=== PATIENT | male | born 1960 | race Caucasian/White ===

== ENCOUNTER 2018-01-11 12:20 | Emergency (ER) | payer MEDICAID ==
[~2018-01-11] VITALS: Ht 193 cm; Wt 96.0 kg
[~2018-01-11 12:20] MED LIST: ACULAR0.5 % OD; ASA LO-DOSE81 MG OR; ASPIRIN LOW DOS81 M1 PO; ATENOLOL25 MG PO; CRESTOR10 MG PO; IMDUR30 MG PO; LIPITOR20 MG PO; LISINOPRIL10 MG PO; LORTAB 7.5 OR; NAPROSYN500 MG OR; NEXIUM40 M1 OR; NITROLINGUAL SPRAY D MT; NITROSTAT0.4 MG SL; PLAVIX75 MG PO; PREVACID30 M2 PO; PROTONIX40 M2 PO; ROBITUSSIN AC10 ML PO; TAMSULOSIN0.4 MG PO; VYTORIN 10/401 TAB OR; ZESTRIL2.5 MG PO; [UNRECOGNIZED DRUG - REMARK]
[2018-01-11 13:11] LABS: HEMATOCRIT 38.3 % (39.0-50.0); HEMOGLOBIN 13.7 g/dl (14.0-18.0); IMMATURE GRANULOCYTES 0.4 % (0.0-5.0); MEAN CELL VOLUME 89.3 fL CALC (80.0-100.0); MEAN CORPUSCULAR HGB 31.9 pG CALC (26.0-32.0); MEAN CORPUSCULAR HGB CONC 35.8 g/L CALC (32.0-36.0); NEUT# 4.05 thou/uL (1.82-7.42); RED BLOOD COUNT 4.29 mill/uL (4.70-6.10); RED CELL DISTRI WIDTH 11.9 % (11.5-15.5)
[2018-01-11 13:19] LABS: ALKALINE PHOSPHATASE 77 u/l (38-126); BILIRUBIN, TOTAL 1.3 mg/dL (0.0-1.4); BUN 13 mg/dL (9-20); BUN/CREATININE RATIO 15 (12-20 (CALC)); CARBON DIOXIDE 27 mmol/l (22-30); CHLORIDE 95 mmol/l (95-108); CREATININE 0.9 mg/dL (0.7-1.3); GFR > 60 ML/MIN (>=60 (CALC)); GFR FOR AFR.AMER. > 60 ML/MIN (>=60 (CALC)); POTASSIUM 3.3 mmol/l (3.5-5.1)
[2018-01-11 13:21] LABS: ALBUMIN 4.5 g/dL (3.2-5.0); ANION GAP 14 (6-22 (CALC)); SGOT/AST 55 u/l (17-59); SODIUM 133 mmol/l (137-146); TOTAL PROTEIN 7.8 g/dL (6.3-8.2)
[2018-01-11 13:26] LABS: INFLUENZA A NONE DETECTED (NONE DETECT); INFLUENZA B NONE DETECTED (NONE DETECT)
[2018-01-11 13:31] LABS: MYOGLOBIN 122 ng/mL (0 - 121)
[2018-01-11 14:04] LABS: URINE BILIRUBIN - DIPSTICK NEGATIVE (NEGATIVE); URINE BLOOD DIPSTICK NEGATIVE (NEGATIVE); URINE COLOR YELLOW; URINE GLUCOSE - DIPSTICK NEGATIVE (NEGATIVE); URINE KETONE NEGATIVE (NEGATIVE); URINE LEUK ESTERASE NEGATIVE (Negative); URINE NITRITE - DIPSTICK NEGATIVE (Negative); URINE PH 5.5 (4.5-8.0); URINE PROTEIN - DIPSTICK NEGATIVE (NEG-TRACE); URINE SPECIFIC GRAVITY <=1.005; URINE UROBILINOGEN - DIPSTICK 0.2 E.U./dL (0.2)
[2018-01-11 14:06] LABS: URINE CLARITY CLEAR
[2018-01-11] MEDS ORDERED: REGLAN10 MG PO (14:58)
[2018-01-11] MEDS ORDERED: ANTIVERT PO (14:58)
[2018-01-11 15:03] VITALS: BP 137/69
== END 2018-01-11 15:05 | disposition home or self-care (01) ==
LOC: ED 12:20
PROVIDERS: Emergency Medicine
DX: R42 Dizziness and giddiness (principal); R00.0 Tachycardia, unspecified; R19.7 Diarrhea, unspecified; F17.210 Nicotine dependence, cigarettes, uncomplicated; I10 Essential (primary) hypertension; I25.2 Old myocardial infarction

== ENCOUNTER 2022-08-25 12:24 | Inpatient (IN) | payer MEDICAID ==
[~2022-08-25] VITALS: Ht 193 cm; Wt 98.0 kg
[2022-08-25] VITALS (16 sets, daily range): BP systolic 70–164; BP diastolic 48–75
[~2022-08-25 12:24] MED LIST changes: +ANTIVERT PO; +REGLAN10 MG PO
[2022-08-25 13:04] LABS: BASO% 0.5 % (0-3); EOS% 3.8 % (0-8); HEMATOCRIT 40.4 % (39.0-50.0); HEMOGLOBIN 13.1 g/dl (14.0-18.0); IMMATURE GRANULOCYTES 0.6 % (0.0-5.0); LYMPH% 26.7 % (15-41); MEAN CORPUSCULAR HGB 29.5 pG CALC (26.0-32.0); MEAN CORPUSCULAR HGB CONC 32.4 g/dL CAL (32.0-36.0); MONO% 8.2 % (2-13); NEUT# 3.96 thou/uL (1.82-7.42); NEUT% 60.2 % (42-76); RED BLOOD COUNT 4.44 mill/uL (4.70-6.10); RED CELL DISTRI WIDTH 13.2 % (11.5-15.5)
[2022-08-25 13:05] LABS: URINE BILIRUBIN - DIPSTICK NEGATIVE (NEGATIVE); URINE BLOOD DIPSTICK NEGATIVE (NEGATIVE); URINE COLOR YELLOW; URINE GLUCOSE - DIPSTICK NEGATIVE (NEGATIVE); URINE KETONE NEGATIVE (NEGATIVE); URINE LEUK ESTERASE NEGATIVE (NEGATIVE); URINE PROTEIN - DIPSTICK NEGATIVE (NEG-TRACE); URINE SPECIFIC GRAVITY <=1.005; URINE UROBILINOGEN - DIPSTICK 0.2 E.U./dL (0.2)
[2022-08-25 13:06] LABS: URINE NITRITE - DIPSTICK NEGATIVE (Negative)
[2022-08-25 13:23] LABS: ALBUMIN 4.3 g/dL (3.2-5.0); ALKALINE PHOSPHATASE 64 u/l (38-126); ANION GAP 15 (6-22 (CALC)); BILIRUBIN, TOTAL 1.6 mg/dL (0.2-1.3); BUN 6 mg/dL (8-23); BUN/CREATININE RATIO 9 (12-20 (CALC)); CARBON DIOXIDE 25 mmol/l (22-30); CHLORIDE 97 mmol/l (95-108); CREATININE 0.7 mg/dL (0.7-1.3); GFR FOR AFR.AMER. > 60 ML/MIN (>=60 (CALC)); GFR OTHER RACES > 60 ML/MIN (>=60 (CALC)); POTASSIUM 3.6 mmol/l (3.5-5.1); SGOT/AST 36 u/l (19-48); SODIUM 133 mmol/l (137-146); TOTAL PROTEIN 6.9 g/dL (6.3-8.2)
[2022-08-25 13:27] LABS: INTERNATIONAL NORMALIZED RATIO 1.1 RATIO (0.7-1.3); PROTHROMBIN TIME 10.5 SECONDS (9.0-12.5)
[2022-08-25] MEDS ORDERED: TOPROL XL100 MG PO (14:09)
[2022-08-25] MEDS ORDERED: ADVAIR DISK1 INH (14:09)
[2022-08-25] MEDS ORDERED: TYLENOL500 MG PO (14:09)
[2022-08-25] MEDS ORDERED: PROVENTIL0.083 % IN (14:10)
[2022-08-25] MEDS ORDERED: NITROSTAT0.4 MG SL (14:10)
[2022-08-25] MEDS ORDERED: NEXIUM40 M1 PO (14:11)
[2022-08-25] MEDS ORDERED: SPIRIVA RE2.5 MCG/AC (14:11)
[2022-08-26] VITALS (7 sets, daily range): BP systolic 114–130; BP diastolic 49–70
[2022-08-26 05:52] LABS: BASO% 0.7 % (0-3); EOS% 3.7 % (0-8); HEMATOCRIT 36.7 % (39.0-50.0); HEMOGLOBIN 12.1 g/dl (14.0-18.0); LYMPH% 27.3 % (15-41); MEAN CELL VOLUME 90.6 fL CALC (80.0-100.0); MEAN CORPUSCULAR HGB 29.9 pG CALC (26.0-32.0); MONO% 8.3 % (2-13); NEUT# 3.41 thou/uL (1.82-7.42); RED BLOOD COUNT 4.05 mill/uL (4.70-6.10); RED CELL DISTRI WIDTH 13.4 % (11.5-15.5)
[2022-08-26 06:12] LABS: ALBUMIN 3.5 g/dL (3.2-5.0); ALKALINE PHOSPHATASE 67 u/l (38-126); ANION GAP 11 (6-22 (CALC)); BUN 6 mg/dL (8-23); BUN/CREATININE RATIO 10 (12-20 (CALC)); CALCULATED LDLCHOLESTEROL 59 mg/dL (62-129 (CALC)); CARBON DIOXIDE 24 mmol/l (22-30); CHLORIDE 102 mmol/l (95-108); CHOLESTEROL HDL RATIO 4.2 (<4.4 (CALC)); CREATININE 0.6 mg/dL (0.7-1.3); GFR FOR AFR.AMER. > 60 ML/MIN (>=60 (CALC)); GFR OTHER RACES > 60 ML/MIN (>=60 (CALC)); HDL CHOLESTEROL 24 mg/dL (39.0-59.0); MAGNESIUM 1.8 mg/dL (1.6-2.3); POTASSIUM 4.2 mmol/l (3.5-5.1); SGOT/AST 26 u/l (19-48); SODIUM 133 mmol/l (137-146); TOTAL CHOLESTEROL 99 mg/dl (0-199); TOTAL PROTEIN 5.8 g/dL (6.3-8.2); TOTAL TRIGLYCERIDES 83 mg/dl (0-149); VLDL CHOLESTROL 17 mg/dl (4-45 (CALC))
[2022-08-26 06:16] LABS: BILIRUBIN, TOTAL 0.9 mg/dL (0.2-1.3)
[2022-08-27 03:56] VITALS: BP 141/69
[2022-08-27 04:33] VITALS: BP 141/69
[2022-08-27 05:33] LABS: BASO% 0.6 % (0-3); EOS% 2.8 % (0-8); HEMATOCRIT 38.8 % (39.0-50.0); HEMOGLOBIN 13.1 g/dl (14.0-18.0); IMMATURE GRANULOCYTES 0.2 % (0.0-5.0); LYMPH% 19.8 % (15-41); MEAN CELL VOLUME 89.4 fL CALC (80.0-100.0); MEAN CORPUSCULAR HGB 30.2 pG CALC (26.0-32.0); MEAN CORPUSCULAR HGB CONC 33.8 g/dL CAL (32.0-36.0); MONO% 8.6 % (2-13); NEUT# 4.36 thou/uL (1.82-7.42); RED BLOOD COUNT 4.34 mill/uL (4.70-6.10); RED CELL DISTRI WIDTH 12.9 % (11.5-15.5)
[2022-08-27 05:59] LABS: ALBUMIN 4.2 g/dL (3.2-5.0); ALKALINE PHOSPHATASE 54 u/l (38-126); ANION GAP 13 (6-22 (CALC)); BUN 6 mg/dL (8-23); BUN/CREATININE RATIO 11 (12-20 (CALC)); CARBON DIOXIDE 23 mmol/l (22-30); CHLORIDE 101 mmol/l (95-108); CREATININE 0.6 mg/dL (0.7-1.3); GFR FOR AFR.AMER. > 60 ML/MIN (>=60 (CALC)); GFR OTHER RACES > 60 ML/MIN (>=60 (CALC)); POTASSIUM 4.9 mmol/l (3.5-5.1); SGOT/AST 44 u/l (19-48); SODIUM 132 mmol/l (137-146); TOTAL PROTEIN 6.8 g/dL (6.3-8.2)
[2022-08-27 06:00] LABS: BILIRUBIN, TOTAL 1.5 mg/dL (0.2-1.3)
[2022-08-27 06:53] VITALS: BP 143/66
[2022-08-27 07:54] VITALS: BP 143/66
[2022-08-27 15:19] VITALS: BP 125/74
[2022-08-27 16:00] VITALS: BP 125/74
== END 2022-08-27 16:36 | DRG 66 ==
LOC: ED 12:24 → ED-I 13:30 → ED 14:58 → MS2 14:59
PROVIDERS: Nurse Practitioner; Nurse Practitioner Family; ADMIT Internal Medicine; ATTEND Internal Medicine
DX: I63.81 Other cerebral infarction due to occlusion or stenosis of small artery (principal); R42 Dizziness and giddiness; H53.2 Diplopia; R29.700 NIHSS score 0; I10 Essential (primary) hypertension; J44.9 Chronic obstructive pulmonary disease, unspecified; I25.10 Atherosclerotic heart disease of native coronary artery without angina pectoris; E78.5 Hyperlipidemia, unspecified; K21.9 Gastro-esophageal reflux disease without esophagitis; I25.2 Old myocardial infarction; F17.200 Nicotine dependence, unspecified, uncomplicated; Z95.5 Presence of coronary angioplasty implant and graft; Z79.02 Long term (current) use of antithrombotics/antiplatelets

== ENCOUNTER 2022-09-21 09:29 | Emergency (ER) | payer MEDICAID ==
[~2022-09-21] VITALS: Ht 193 cm; Wt 87.3 kg
[~2022-09-21 09:29] MED LIST changes: +ADVAIR DISK1 INH; +NEXIUM40 M1 PO; +PROVENTIL0.083 % IN; +SPIRIVA RE2.5 MCG/AC; +TOPROL XL100 MG PO; +TYLENOL500 MG PO
[2022-09-21 09:35] VITALS: BP 128/90
[2022-09-21] MEDS ORDERED: PREDNISONE20 MG PO (09:59)
[2022-09-21 10:01] VITALS: BP 104/75
[2022-09-21 10:13] LABS: BASO% 0.7 % (0-3); HEMATOCRIT 42.1 % (39.0-50.0); HEMOGLOBIN 14.2 g/dl (14.0-18.0); IMMATURE GRANULOCYTES 0.2 % (0.0-5.0); LYMPH% 22.8 % (15-41); MEAN CELL VOLUME 89.8 fL CALC (80.0-100.0); MEAN CORPUSCULAR HGB 30.3 pG CALC (26.0-32.0); MEAN CORPUSCULAR HGB CONC 33.7 g/dL CAL (32.0-36.0); MONO% 10.7 % (2-13); NEUT# 3.88 thou/uL (1.82-7.42); NEUT% 63.6 % (42-76); RED BLOOD COUNT 4.69 mill/uL (4.70-6.10); RED CELL DISTRI WIDTH 12.6 % (11.5-15.5)
[2022-09-21 10:25] LABS: ALBUMIN 4.8 g/dL (3.2-5.0); ALKALINE PHOSPHATASE 74 u/l (38-126); ANION GAP 18 (6-22 (CALC)); BUN 21 mg/dL (8-23); BUN/CREATININE RATIO 26 (12-20 (CALC)); CARBON DIOXIDE 20 mmol/l (22-30); CHLORIDE 100 mmol/l (95-108); CREATININE 0.8 mg/dL (0.7-1.3); GFR FOR AFR.AMER. > 60 ML/MIN (>=60 (CALC)); GFR OTHER RACES > 60 ML/MIN (>=60 (CALC)); POTASSIUM 4.1 mmol/l (3.5-5.1); SGOT/AST 44 u/l (19-48); SODIUM 133 mmol/l (137-146); TOTAL PROTEIN 8.1 g/dL (6.3-8.2)
[2022-09-21 10:29] LABS: BILIRUBIN, TOTAL 3.3 mg/dL (0.2-1.3)
[2022-09-21 11:16] LABS: URINE BLOOD DIPSTICK SMALL (NEGATIVE); URINE GLUCOSE - DIPSTICK NEGATIVE (NEGATIVE); URINE KETONE 15 mg/dL (NEGATIVE); URINE LEUK ESTERASE NEGATIVE (NEGATIVE); URINE PROTEIN - DIPSTICK TRACE mg/dL (NEG-TRACE); URINE SPECIFIC GRAVITY >=1.030
[2022-09-21 11:17] LABS: URINE BILIRUBIN - DIPSTICK SEE COMMNET (NEGATIVE); URINE COLOR AMBER; URINE NITRITE - DIPSTICK NEGATIVE (Negative)
[2022-09-21 11:23] LABS: URINE WBC 0-2 WBC/hpf (0-5)
[2022-09-21 17:16] VITALS: BP 104/75
== END 2022-09-21 17:17 | disposition home or self-care (01) ==
LOC: ED 09:29
PROVIDERS: Family Medicine
DX: R53.1 Weakness (principal); R31.9 Hematuria, unspecified; I10 Essential (primary) hypertension; J44.9 Chronic obstructive pulmonary disease, unspecified; I25.2 Old myocardial infarction; F17.200 Nicotine dependence, unspecified, uncomplicated; Z85.118 Personal history of other malignant neoplasm of bronchus and lung; Z95.5 Presence of coronary angioplasty implant and graft; Z86.73 Personal history of transient ischemic attack (TIA), and cerebral infarction without residual deficits

== ENCOUNTER 2022-09-26 14:31 | Observation (INO) | payer MEDICAID ==
[~2022-09-26] VITALS: Ht 193 cm; Wt 91.0 kg
[2022-09-26] VITALS (13 sets, daily range): BP systolic 100–128; BP diastolic 56–73
[~2022-09-26 14:31] MED LIST changes: +PREDNISONE20 MG PO
--- NOTE | 2022-09-26 15:11 | NUR ---
PATIENT PRESENTS POST 2 MONTHS CVA WITH DIFFICULTY SWALLOWING . LIQUIDS AND SOLIDS. FACIAL DROOP IS RESIDUAL FROM PREVIOUS CVA. WEAKNESS PATIENT STATED STARTED 2 WEEKS AGO ALSO.
[2022-09-26 15:12] LABS: BASO% 0.7 % (0-3); EOS% 2.1 % (0-8); HEMATOCRIT 40.9 % (39.0-50.0); HEMOGLOBIN 13.9 g/dl (14.0-18.0); IMMATURE GRANULOCYTES 0.2 % (0.0-5.0); LYMPH% 15.6 % (15-41); MEAN CELL VOLUME 87.8 fL CALC (80.0-100.0); MEAN CORPUSCULAR HGB 29.8 pG CALC (26.0-32.0); MONO% 7.2 % (2-13); NEUT# 6.94 thou/uL (1.82-7.42); NEUT% 74.2 % (42-76); RED BLOOD COUNT 4.66 mill/uL (4.70-6.10); RED CELL DISTRI WIDTH 12.7 % (11.5-15.5)
[2022-09-26 15:22] LABS: ALBUMIN 4.6 g/dL (3.2-5.0); ALKALINE PHOSPHATASE 78 u/l (38-126); ANION GAP 19 (6-22 (CALC)); BILIRUBIN, TOTAL 3.2 mg/dL (0.2-1.3); BUN 23 mg/dL (8-23); BUN/CREATININE RATIO 27 (12-20 (CALC)); CARBON DIOXIDE 22 mmol/l (22-30); CHLORIDE 98 mmol/l (95-108); CPK 61 u/l (55-170); CREATININE 0.9 mg/dL (0.7-1.3); GFR FOR AFR.AMER. > 60 ML/MIN (>=60 (CALC)); GFR OTHER RACES > 60 ML/MIN (>=60 (CALC)); MAGNESIUM 1.7 mg/dL (1.6-2.3); POTASSIUM 4.2 mmol/l (3.5-5.1); SGOT/AST 43 u/l (19-48); SODIUM 134 mmol/l (137-146); TOTAL PROTEIN 7.6 g/dL (6.3-8.2)
[2022-09-26 15:29] LABS: URINE BLOOD DIPSTICK TRACE-INTACT (NEGATIVE); URINE COLOR AMBER; URINE GLUCOSE - DIPSTICK NEGATIVE (NEGATIVE); URINE KETONE 15 mg/dL (NEGATIVE); URINE NITRITE - DIPSTICK NEGATIVE (Negative); URINE PROTEIN - DIPSTICK TRACE mg/dL (NEG-TRACE); URINE SPECIFIC GRAVITY >=1.030
[2022-09-26 15:30] LABS: URINE LEUK ESTERASE NEGATIVE (NEGATIVE)
[2022-09-26 15:31] LABS: ACT PARTIAL THROMBO TIME 21.3 SECONDS (20.0-32.5); INTERNATIONAL NORMALIZED RATIO 1.1 RATIO (0.7-1.3); PROTHROMBIN TIME 10.6 SECONDS (9.0-12.5)
--- NOTE | 2022-09-26 15:35 | NUR ---
PATIENT RESTING. FAMILY AT THE BEDSIDE. NO DISTRESS.
--- NOTE | 2022-09-26 17:44 | NUR ---
PATIENT RESTING. NO DISTRESS. ADMISSION TO [facility] PENDING.
--- NOTE | 2022-09-26 18:46 | NUR ---
PT RESTING IN BED. NO ACUTE DISTRESS.
--- NOTE | 2022-09-26 18:48 | NUR ---
VERBAL REPORT GIVEN TO NIGHT NURSE.
--- NOTE | 2022-09-26 18:55 | NUR ---
REPORT RECEIVED FROM JERONIMO MORRISON AND CARE OF PT ASSUMED AT THIS TIME
--- NOTE | 2022-09-26 19:40 | NUR ---
REPORT GIVEN TO JERONIMO SANTILLAN
[2022-09-27] VITALS (9 sets, daily range): BP systolic 98–160; BP diastolic 46–92
--- NOTE | 2022-09-27 00:24 | NUR ---
Report recieved from ED. Patient transported to unit via stretcher at 21:00 09/26/2022. Transferred to bed. A&OX3. Patient is orientated to room and light. RN did full asessment and documentation.
--- NOTE | 2022-09-27 07:00 | NUR ---
RECEIVED BEDSIDE REPORT FROM PM RN. PT RESTING IN BED WITH EYES CLOSED. ALL SAFETY MEASURES IN PLACE. VSS. NO NEEDS AT THIS TIME.
--- NOTE | 2022-09-27 08:46 | NUR ---
COMPLETED BEDSIDE SWALLOW EVALUATION ON PT. PT IS NOT ABLE TO SWALLOW PUREES OR THICKENED LIQUIDS WITHOUT COUGHT. FAILS BEDSIDE SWALLOW.
--- NOTE | 2022-09-27 19:46 | NUR ---
PATIENT RESTING IN BED WITH FAMILY AT BEDSIDE. PATIENT IS ALERT AND ORIENTEDX3. PATIENT WITH PATCH TO LEFT EYE AT THIS TIME. PATIENT WITH SLURRED SPEECH AND WITH RIGHT SIDED FACIAL DROOP. PATIENT WITH HX OF CVA APPROX 1MONTH AGO. PATIENT AND BROTHER BOTH STATES THAT HIS SPEECH HAS GOTTEN WORSE SINCE GOING HOME FROM THE HOSPITAL. ALSO STATES THAT HE HAS RECIEVED VERY LITTLE IF ANY THERAPY SINCE HE WENT HOME FROM THE HOSPITAL-ALWAYS SOME PROBLEM WITH INSURANCE COVERAGE. PATIENT IS ALSO HAVING DIFFICULTY WITH SWALLOWING. CURRENTLY IS NPO. IVF D5NS PATENT AND INFUSING ORDERED. TELE MONITOR IN PLACE-LAST READING WAS SR-80'S WITH PVC'S. VOIDING DARK YANET URINEIN URINAL. CALL LIGHT IN REACH. SAFETY PRECAUTIONS IN PLACE. WILL CONT TO MONITOR,
--- NOTE | 2022-09-27 22:04 | NUR ---
RESTING IN BED POSITIONED ON LEFT SIDE. EYES CLOSED AND RESPS ARE EVEN AND UNLABORED. TELE MONITOR IN PLACE. IVF PATENT AND INFUSING VIA LAC AT 75CC/HR. SITE REMAINS HEALTHY. CALL LIGHT IN REACH. WILL CONT TO MONITOR.
[2022-09-28] VITALS (7 sets, daily range): BP systolic 130–155; BP diastolic 81–90
--- NOTE | 2022-09-28 01:13 | NUR ---
PATIENT RESTING IN BED POSITIONED ON SIDE. NEW IVF BAG HUNG AT 75CC/HR. TELE MONITOR IN PLACE. CALL LIGHT IN REACH. WILL CONT TO MONITOR.
[2022-09-28 03:54] LABS: HEMATOCRIT 39.4 % (39.0-50.0); HEMOGLOBIN 13.3 g/dl (14.0-18.0); MEAN CELL VOLUME 88.9 fL CALC (80.0-100.0); MEAN CORPUSCULAR HGB CONC 33.8 g/dL CAL (32.0-36.0); RED BLOOD COUNT 4.43 mill/uL (4.70-6.10); RED CELL DISTRI WIDTH 12.6 % (11.5-15.5)
[2022-09-28 04:14] LABS: ALBUMIN 4.2 g/dL (3.2-5.0); ALKALINE PHOSPHATASE 65 u/l (38-126); ANION GAP 11 (6-22 (CALC)); BILIRUBIN, TOTAL 2.2 mg/dL (0.2-1.3); BUN 17 mg/dL (8-23); BUN/CREATININE RATIO 23 (12-20 (CALC)); CHLORIDE 100 mmol/l (95-108); CREATININE 0.7 mg/dL (0.7-1.3); GFR FOR AFR.AMER. > 60 ML/MIN (>=60 (CALC)); GFR OTHER RACES > 60 ML/MIN (>=60 (CALC)); MAGNESIUM 1.7 mg/dL (1.6-2.3); SGOT/AST 39 u/l (19-48); SODIUM 135 mmol/l (137-146); TOTAL PROTEIN 7.1 g/dL (6.3-8.2)
[2022-09-28 04:32] LABS: CARBON DIOXIDE 28 mmol/l (22-30)
--- NOTE | 2022-09-28 04:33 | NUR ---
IV PUMP TO LAC SITE CONT TO BEEP FREQUENTLY DUE TO PATIENT BENDING HIS ARM. NEW IV SITE STARTED TO RIGHT HAND-#22 WITH GOOD BLOOD RETURN. IVF D5NS PATENT AND INFUSING AT 75CC/HR. CONT TO USE URINAL TO VOID DARK YANET URINE. SAFETY PRECAUTIONS REINFORCED. CALL LIGHT IN REACH. WILL CONT TO MONITOR.
--- NOTE | 2022-09-28 06:35 | NUR ---
PATIENT WITH DRY HEEVES IN BED-MEDICATED WITH ZOFRAN 4MG IVP FOR N/V. IVF PATENT AND INFUSING AT 75CC/HR. TELE MONITOR IN PLACE-CONT SR-ST 90'S-LOW 100'S. CONT TO VOID DARK YANET UJRINE IN URINAL. CALL LIGHT IN REACH. WILL CONT TO MONITOR.
--- NOTE | 2022-09-28 07:14 | NUR ---
RECEIVED BEDSIDE REPORT FROM JERONIMO HAWKINS. PT RESTING IN BED WITH EYES CLOSED. ALL SAFETY MEASURES IN PLACE. VSS. NO NEEDS AT THIS TIME.
--- NOTE | 2022-09-28 11:12 | NUR ---
SPOKE TO PT'S SON WITH PT'S PERMISSION. EXPLAINED PT'S CURRENT CONDITION AND ANSWERED QUESTIONS. PT'S SON STATES HE WILL SPEAK TO HIS FATHER AND THEY WILL WORK OUT A PLAN FOR PT'S CARE.
--- NOTE | 2022-09-28 13:00 | NUR ---
PT SEEN BY TELENEUROLOGY. PHYSICIAN RECOMMENDED RN SPEAK TO PT'S SON AND PT AND EXPLAIN PALLIATIVE CARE. PT'S PHYSICIAN MADE AWARE OF NEURO OPINION. MRI ALSO ORDERED - PT STATES HE WILL NEED TO BE "KNOCKED OUT" TO TOLERATE. DR MEYER IS AWARE.
--- NOTE | 2022-09-28 16:24 | NUR ---
PT AGREES TO MRI. ATIVAN GIVEN PER ORDER. NEW IV STARTED IN RAC. 20 GAUGE FOR CONTRAST PUSH. PT TOLERATED WELL.
--- NOTE | 2022-09-28 20:00 | NUR ---
RECEIVED REPORT FROM NURSE SAÚL. XINEINT ALERT ORINETED X 3 ABLE TO MAKE NEEDS KNONW, SLURRED SPEECH, NOTED RT SIDED FACILA DROOP, DIFFICULTY SWALLOWING, PATIENT ON NPO ONGOING IV D5NS@ 75CC/HR INFUSING WELL ON RT HAND, PATEINT HAS AN EYE PATCH ON LEFT EYE, PATIENT HAD A STROKE A MONTH AGO, PATIENT ON NPO AT THIS TIME, USES URINAL TO VOID VOIDED 150CC YANET URINE, CALL LIGHT IN REACH.
--- NOTE | 2022-09-29 | NUR ---
PATIENT RESTING WITH EYES CLOSED, BREATHING NOT IN DISTRESS, PATIENT RESTING LEFT SIDE LYING POSITION, CALL LIGHT IN REACH.
[2022-09-29 00:18] VITALS: BP 137/80
--- NOTE | 2022-09-29 03:55 | NUR ---
PATIENT RESTING WITH EYES CLOSED, NOT IN DISTRESS, BREATHING EVEN UNLABORED. CALL LIGHT IN REACH.
[2022-09-29 04:31] VITALS: BP 148/86
[2022-09-29 04:46] LABS: HEMATOCRIT 40.6 % (39.0-50.0); HEMOGLOBIN 13.5 g/dl (14.0-18.0); MEAN CELL VOLUME 90.2 fL CALC (80.0-100.0); MEAN CORPUSCULAR HGB CONC 33.3 g/dL CAL (32.0-36.0); RED BLOOD COUNT 4.5 mill/uL (4.70-6.10); RED CELL DISTRI WIDTH 12.7 % (11.5-15.5)
[2022-09-29 05:05] LABS: ALBUMIN 4.3 g/dL (3.2-5.0); ALKALINE PHOSPHATASE 71 u/l (38-126); ANION GAP 14 (6-22 (CALC)); BILIRUBIN, TOTAL 2.7 mg/dL (0.2-1.3); BUN 17 mg/dL (8-23); BUN/CREATININE RATIO 24 (12-20 (CALC)); CARBON DIOXIDE 28 mmol/l (22-30); CHLORIDE 98 mmol/l (95-108); CREATININE 0.7 mg/dL (0.7-1.3); GFR FOR AFR.AMER. > 60 ML/MIN (>=60 (CALC)); GFR OTHER RACES > 60 ML/MIN (>=60 (CALC)); MAGNESIUM 1.8 mg/dL (1.6-2.3); POTASSIUM 4.2 mmol/l (3.5-5.1); SGOT/AST 48 u/l (19-48); SODIUM 136 mmol/l (137-146); TOTAL PROTEIN 7.6 g/dL (6.3-8.2)
--- NOTE | 2022-09-29 08:00 | NUR ---
PT IN BED WITH HOB UP, ALERT AND OREIENTED X3. PT HAS NO C/O PAIN AT THIS TIME. PT HAS TELE WITH ALL LEADS ATTACHED. IV SITE TO BANNER WITH D5 NS @ 75 ML/HR INFUSING. PT HAS URINAL AT BEDSIDE FOR TOILETING. PT REMAINS NPO WITH SPRAY BOTTLE AT BEDSIDE TO KEEP MOUTH MOISTENED. PT HAS CALL LIGHT WITHIN REACH AND ALL SAFETY MEASURES IN PLACE AT THIS TIME.
[2022-09-29 08:15] VITALS: BP 145/82
--- NOTE | 2022-09-29 12:00 | NUR ---
PT IN BED, PT HAS NO C/O PAIN AT THIS TIME. PT IS AWARE OF TRANSFER TO [facility], IN AGREEMENT AND CONSNETS SIGNED. PT HAS CALL LIGHT WITHIN REACH AND ALL SAFETY MEASURES IN PLACE AT THIS TIME.
--- NOTE | 2022-09-29 12:26 | NUR ---
PT TRANSFERRED TO [facility] VIA MEDICAL TRANSPORT. FAMILY IN AND IS AWARE OF TRANSFER. PT IV INTACT AND CLEAN TO [facility] AND . REPORT GIVEN TO MEDICAL TRANSPORT AND [facility].
[2022-09-29 12:36] VITALS: BP 169/89
== END 2022-09-29 12:31 | disposition short-term general hospital (02) ==
LOC: ED 14:31 → MS2 16:37
PROVIDERS: Family Medicine; ADMIT Internal Medicine; ATTEND Internal Medicine
DX: G93.89 Other specified disorders of brain (principal); R13.10 Dysphagia, unspecified; R53.1 Weakness; R91.8 Other nonspecific abnormal finding of lung field; I69.392 Facial weakness following cerebral infarction; I69.351 Hemiplegia and hemiparesis following cerebral infarction affecting right dominant side; I10 Essential (primary) hypertension; I65.29 Occlusion and stenosis of unspecified carotid artery; J43.9 Emphysema, unspecified; I25.10 Atherosclerotic heart disease of native coronary artery without angina pectoris; E78.5 Hyperlipidemia, unspecified; K21.9 Gastro-esophageal reflux disease without esophagitis; F17.210 Nicotine dependence, cigarettes, uncomplicated; I49.3 Ventricular premature depolarization; I25.2 Old myocardial infarction; Z79.82 Long term (current) use of aspirin; Z85.118 Personal history of other malignant neoplasm of bronchus and lung; Z79.02 Long term (current) use of antithrombotics/antiplatelets; Z95.5 Presence of coronary angioplasty implant and graft
CPT/HCPCS: A9579; G0378; J1650; J2060; Q9967; S0164